=== PATIENT | female | born 1985 | race American Indian/Alaskan Native ===

== ENCOUNTER 2022-02-07 12:06 | Emergency (ER) | payer MEDICARE, MEDICAID ==
[2022-02-07 12:38] VITALS: BP 126/67
[2022-02-07 13:31] LABS: Bacteria,Urine 1+ /HPF (Negative); Bilirubin,Urine NEG (Negative); Blood,Urine NEG (Negative); Color,Urine Yellow (Yellow); Mucus,Urine FEW /HPF; Protein,Urine <15 mg/dL mg/dL (Negative); Urobilinogen,Urine < 2.0 mg/dL (<2.0)
[2022-02-07 15:14] LABS: Basophils % (Auto) 0.5 % (0.0-1.8); Eosinophils # (Auto) 0.2 K/mm3 (0.0-0.4); Hematocrit 36.9 % (30.3-42.9); Hemoglobin 12.2 gm/dl (10.1-14.3); Lymphocytes # (Auto) 1.4 K/mm3 (1.2-5.4); Lymphocytes % (Auto) 18.4 % (13.4-35.0); Mean Corpuscular HGB Conc 33 % (30-34); Mean Corpuscular Volume 94 fl (79-97); Monocytes # (Auto) 0.5 K/mm3 (0.0-0.8); Platelet Count 240 K/mm3 (140-440); Red Blood Count 3.93 M/mm3 (3.65-5.03); Red Cell Distribution Width 12.7 % (13.2-15.2)
--- NOTE | 2022-02-07 15:48 | Ultrasound Report ---
FIRSTTRIMESTER OBSTETRIC ULTRASOUND HISTORY: Abdominal pain during COMPARISON: None. TECHNIQUE: Routine transabdominal OB ultrasound performed. FINDINGS: Uterus: The uterus is at the upper limits of normal size measuring 9.8 x 5.4 x 6.7 cm. Gestational Sac: Well-defined oval shape and intrauterine in location. Yolk Sac: Normal in appearance. Fetus/Embryo: [place]-rump length of 0.4 cm, corresponding to an estimated gestational age of 6 weeks 0 days. Embryonic/ anatomy is too small for evaluation. Embryonic/ cardiac activity: 112bpm Placenta: Too small for evaluation. Amniotic fluid volume: Subjectively appropriate for gestational age. Ovaries: The right ovary is normal in size and appearance with normal blood flow, measuring 3.0 x 2. 0 x 1.7 cm. The left ovary is normal in size and appearance with normal blood flow, measuring 4.1 x 2.3 x 2.8 cm. Hypoechoic space-occupying mass in the left ovary with peripheral vascularity is most likely the corpus luteum. Additional findings: None. IMPRESSION Early live intrauterine . No acute abnormality is detected. Signer Name: Adair Coffey Jr, MD Signed: 02/07/2022 3:44 PM Workstation Name: [id number]
[2022-02-07 16:03] LABS: Alanine Aminotransferase 7 units/L (7-56); Albumin 4.5 g/dL (3.9-5); Blood Urea Nitrogen 6 mg/dL (7-17); Calcium 9.8 mg/dL (8.4-10.2); Hemolysis Index 7
[2022-02-07 16:14] LABS: BUN/Creatinine Ratio 10
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
== END 2022-02-07 17:25 | disposition left against medical advice (07) ==
LOC: ED 12:06
DX: O20.8 Other hemorrhage in early pregnancy (principal); R10.9 Unspecified abdominal pain; Z3A.01 Less than 8 weeks gestation of pregnancy; G43.909 Migraine, unspecified, not intractable, without status migrainosus; J45.909 Unspecified asthma, uncomplicated; Z13.30 Encounter for screening examination for mental health and behavioral disorders, unspecified; Z91.09 Other allergy status, other than to drugs and biological substances
CPT/HCPCS: 36415; 76801; 80053; 81001; 84702; 85025; 99283

== ENCOUNTER 2022-05-22 14:26 | Outpatient (CLI) | payer MEDICARE ==
[2022-05-22 17:25] LABS: Mucus,Urine FEW /HPF
[2022-05-22 17:31] LABS: Color,Urine Straw (Yellow)
== END 2022-05-22 18:10 | disposition left against medical advice (07) ==
LOC: TRG 14:26 → APU 14:27 → TRG 18:10
PROVIDERS: ATTEND Obstetrics & Gynecology
DX: O09.892 Supervision of other high risk pregnancies, second trimester (principal); O26.892 Other specified pregnancy related conditions, second trimester; R10.9 Unspecified abdominal pain; Z3A.20 20 weeks gestation of pregnancy
CPT/HCPCS: 81001